=== PATIENT | female | born 1965 | race Caucasian/White ===

== ENCOUNTER 2022-06-13 22:29 | Emergency (ER) | payer OTHER, SELFPAY ==
[2022-06-13 22:32] VITALS: BP 134/68; PULSE 67; RESP 18; TEMP 36.6; O2SAT 100; BMI 23.0
[2022-06-14 01:21] VITALS: BP 138/70; PULSE 60; RESP 17; TEMP 37.1; O2SAT 100
--- NOTE | 2022-06-14 01:47 | ED.SKABFB ---
HPI - Skin/Abscess/Foreign Bdy General Chief complaint: Skin/Abscess/Foreign Body Stated complaint: ? cyst on forehead Source: patient Mode of arrival: ambulatory Limitations: no limitations History of Present Illness HPI narrative: 56-year-old female presents with cyst going to the middle of her forehead, states it started off as a pimple 2 days ago and has tripled in size with redness surrounding the site. She states that that hurts her whole forehead and her scalp. She did try to express the wound herself, but it is too painful. She does not report fevers or chills, trauma, or foreign body. complaint: abscess/boil Onset (ago): day(s) (2) Tetanus up to date: yes Location: face Severity: moderate Severity scale (1-10): 5 Quality: aching Pain Consistency: constant Relieving factors: none Exacerbating factors: palpation Context: none Associated symptoms: denies other symptoms Treatments prior to arrival: attempted to drain pus at home Related Data Previous Rx's Medication Instructions Recorded amoxicillin 875 mg-potassium 1 tab PO Q12H 10 days #20 tabs 06/14/22 clavulanate 125 mg tablet doxycycline monohydrate 100 mg 100 mg PO BID 10 days #20 caps 06/14/22 capsule Allergies Allergy/AdvReac Type Severity Reaction Status Date / Time No Known Allergies Allergy Verified 06/13/22 22:32 Review of Systems Review of Systems: Constitutional: No Fever, No Chills ENT/Mouth: No Ear Pain, No Hoarseness, No sore throat Eyes: No Eye Pain, No Swelling, No Redness, No Foreign Body Cardiovascular: No Chest Pain, No SOB Respiratory: No Cough, No Dyspnea Gastrointestinal: No Nausea, No Vomiting, No Diarrhea, No abdominal Pain Genitourinary: No Dysuria, No Hematuria Musculoskeletal: No joint pain, No Myalgias, No Joint Swelling Skin: Positive abscess to forehead, No Skin lacerations, No rash Neuro: No Weakness, No Numbness, No Paresthesias, No Loss of Consciousness, No Dizziness, No Headache Psych: No Anxiety/Panic, No Depression Heme/Lymph: no easy bruising, no Lymphadenopathy Endocrine: No Polyuria, No Polydipsia Yes all other systems are reviewed and are negative [facility] Past Medical History Attestation statement: The following information was validated with the patient. Source: old records reviewed Social History Social History Advance Directives: No Advance Directives Information Provided: Yes Physical Exam Vital Signs: Vital Signs: Last Vital Signs Temp 98.8 F 06/14/22 01:21 Pulse 60 06/14/22 01:21 Resp 17 06/14/22 01:21 BP 138/70 06/14/22 01:21 Pulse Ox 100 06/14/22 01:21 O2 Del Method 06/14/22 01:21 BMI result Body Mass Index 23.0 Appearance: Alert. Oriented X3. No acute distress. Eyes: Pupils equal, round and reactive to light. ENT: Pharynx normal. Neck: Normal inspection. Neck supple. CVS: Normal heart rate and rhythm. Pulses normal. Respiratory: No respiratory distress. Breath sounds normal. Abdomen: Soft and nontender. Skin: 2 cm in diameter erythematous area with pocket of fluctuance approximately 0.5 cm in diameter. Skin warm and dry. Normal skin color. Normal skin turgor. Extremities: No lower extremity edema. Gait well-balanced well coordinated. Neuro: No motor deficit. No sensory deficit. Cranial nerves 2-12 intact. Course Course Course Narrative: 56-year-old female presents with abscess to the center of her forehead that started approximately 2 days ago. Started off as is it and increased in size, and is now very painful. She did try to express pus was unsuccessful. This time feel that I&D is appropriate as there is an area of fluctuance. Site anesthetized with lidocaine 1% 2 mL, prepped and draped in sterile fashion, minimal amount of drainage from the site, 11 blade utilized. Culture obtained. Patient tolerated procedure well. Will treat with doxycycline and Augmentin to cover for MRSA. Patient verbalized understanding of and agrees to plan of care discharge home. Verbalized understanding of signs and symptoms indicating need for emergent intervention. MDM - Skin/Abscess/Foreign Bdy Differential Diagnosis Differential diagnosis: Likely abscess of skin or subcutaneous tissue and cellulitis Medical Records Attestation: I reviewed the patient's medical records. Procedures Abscess I/D Site: face (Mid forehead on the hairline) Local Anesthetic: lidocaine 1% Amount of anesthesia used (mL): 2 Technique: incised with blade Amount of fluid expressed (mL): 1 Sent for culture/gram staining?: Yes Irrigation: No Packing used?: none Discharge Plan Discharge Clinical Impression: Cellulitis, Abscess of skin or subcutaneous tissue Patient Disposition: Home, Self-Care Instructions: Cellulitis (ED), Abscess (ED), Incision and Drainage (ED), Warm Compress or Soak (ED) Additional Instructions: You were evaluated for abscess to her forehead. We are treating you with doxycycline 100 mg twice a day for the next 10 days and Augmentin 875 mg twice a day for the next 10 days. Take these medications as directed. Your cultures are pending. Use Mederma scar ointment to help reduce scarring. Thank you for choosing this emergency department for evaluation. Please follow-up with primary care physician as needed. Return to the emergency department for any new, concerning, or worsening symptoms. Prescriptions: New doxycycline monohydrate 100 mg capsule 100 mg PO BID 10 Days Qty: 20 0RF amoxicillin-pot clavulanate 875-125 mg tablet 1 tab PO Q12H 10 Days Qty: 20 0RF
[2022-06-14] MEDS: Amoxicillin/Potassium Clav 875 MG TABLET PO (02:16)
[2022-06-14] MEDS: Lidocaine HCl 1 % MPF 2 ML VIAL 4 ML INFILTRATI (02:17)
--- NOTE | 2022-06-14 03:29 | PC.NURSE ---
wound culture sent unable to record it under the collection section of assessment. lab called and made aware,
== END 2022-06-14 03:31 | disposition home or self-care (01) ==
PROVIDERS: Emergency Provider Student in an Organized Health Care Education/Training Program
DX: L02.01 Cutaneous abscess of face (principal); L03.211 Cellulitis of face
CPT/HCPCS: 10060; 87070; 87077; 87186; 87205; 99283